=== PATIENT | female | born 1965 | race Caucasian/White ===

== ENCOUNTER → 2017-10-13 | Outpatient (CLI) | payer BC ==
[~2017-10-13] MED LIST: ALLERGY RELIEF10 M1 PO; ANTI-GAS80 MG PO; ASPIRIN ADULT L81 M1 PO; B COMPLEX1 CAP PO; CLINORIL200 MG PO; DULCOLAX10 MG PO; DULCOLAX5 MG PO; FERRALET PO; FISH OIL1 IU PO; FLEXERIL10 MG PO; GREEN COFFEE BEAN; HYDROCODONE BIT1 T11 PO; KEFLEX500 MG PO; MOBIC15 MG PO; MOTRIN,RUFEN800 MG PO; MULTI VITAMINS1 TAB PO; MYLICON, MYLANT80 MG PO; NATURE'S BLEND500 M1; PERCOCET 325 MG1 TA2 PO; PERCOCET 325 MG1 TA5; PERCOCET 325 MG1 TA5 PO; PREDNICOT20 MG PO; PROZAC20 MG PO; VITAMIN D400 I1
== END | disposition home or self-care (01) ==
LOC: MAMMO 16:31
DX: Z12.31 Encounter for screening mammogram for malignant neoplasm of breast (principal)

== ENCOUNTER → 2018-04-26 | Outpatient (CLI) | payer BC | END | disposition home or self-care (01) | LOC: RAD 15:40 | DX: M17.0 Bilateral primary osteoarthritis of knee (principal); M25.762 Osteophyte, left knee; M25.761 Osteophyte, right knee ==

== ENCOUNTER → 2019-09-27 | Outpatient (CLI) | payer BC | END | disposition home or self-care (01) | LOC: MAMMO 14:42 | DX: Z12.31 Encounter for screening mammogram for malignant neoplasm of breast (principal) ==

== ENCOUNTER → 2022-02-05 | Outpatient (CLI) | payer BC | END | disposition home or self-care (01) | LOC: MAMMO 07:30 | PROVIDERS: ATTEND Nurse Practitioner | DX: Z12.31 Encounter for screening mammogram for malignant neoplasm of breast (principal) ==

== ENCOUNTER → 2023-05-04 | Outpatient (CLI) | payer BC | END | disposition home or self-care (01) | LOC: MAMMO 11:09 | PROVIDERS: ATTEND Nurse Practitioner | DX: Z12.31 Encounter for screening mammogram for malignant neoplasm of breast (principal) ==

== ENCOUNTER → 2023-11-13 | Outpatient (CLI) | payer BC | END | disposition home or self-care (01) | LOC: US 10:57 | PROVIDERS: ATTEND Nurse Practitioner | DX: R10.9 Unspecified abdominal pain (principal); Z90.49 Acquired absence of other specified parts of digestive tract ==